=== PATIENT | male | born 1945 | race African-American/Black ===

== ENCOUNTER 2018-03-26 14:17 | Emergency (ER) | payer SELFPAY ==
[~2018-03-26] VITALS: Ht 157.5 cm; Wt 66.0 kg
[2018-03-26] MEDS ORDERED: BACITRACIN ZINC OINT UDPKT TOP ONE (15:15)
[2018-03-26 16:28] VITALS: BP 120/72
== END 2018-03-26 16:38 | disposition home or self-care (01) ==
LOC: ER 14:17
DX: S61.213A Laceration without foreign body of left middle finger without damage to nail, initial encounter (principal); S80.811A Abrasion, right lower leg, initial encounter; I10 Essential (primary) hypertension; W10.8XXA Fall (on) (from) other stairs and steps, initial encounter; Y93.89 Activity, other specified; Y92.811 Bus as the place of occurrence of the external cause
CPT/HCPCS: 99283